=== PATIENT | male | born 1955 | race African-American/Black ===

== ENCOUNTER 2018-05-01 23:16 | Emergency (ER) | payer OTHER ==
[~2018-05-01] VITALS: Ht 180.3 cm; Wt 90.7 kg
[~2018-05-01 23:16] MED LIST: AGG25C OR; ATEN50TA OR; GLIP-115 OR; METF1000 OR
[2018-05-01 23:54] LABS: Basophils # (auto) 0.2 uL; Basophils % (auto) 2.2 % (0.0-2.0); Eosinophils # (auto) 0.8 uL; Hematocrit 35.6 % (41.0-53.0); Lymphocytes # (auto) 0.9 uL; Lymphocytes % (auto) 12.6 % (10.0-50.0); Mean Corpuscular Hemoglobin 33.6 pg (28.0-32.0); Mean Corpuscular Hgb Conc. 33.7 g/dL (32.0-36.0); Mean Corpuscular Volume 99.8 fL (80.0-100.0); Monocytes # (auto) 0.2 uL; Monocytes % (auto) 3.2 % (0.0-12.0); Neutrophils # (auto) 5.2 uL; Platelet Count (auto) 178 10^3/uL (140-450); Red Blood Cells 3.57 10^6/uL (4.5-5.90); Red Cell Distribution Width 14.7 % (11.8-14.3); White Blood Cell 7.4 10^3/uL (4.4-10.8)
[2018-05-02 00:12] LABS: Alanine Aminotransferase 26 U/L (16-61); Albumin 3.7 g/dL (3.4-5.0); Anion Gap 12 (5-15); Blood Urea Nitrogen 13 mg/dL (7-18); Calcium 7.6 mg/dL (8.5-10.1); Carbon Dioxide 18 mmol/L (21-32); Chloride 99 mmol/L (98-107); Sodium 129 mmol/L (136-145)
[2018-05-02 00:14] LABS: Aspartate Aminotransferase 24 U/L (15-37); Bilirubin, Total 0.6 mg/dL (0.2-1.0); GFR Non-African American 53 mL/min; Total Protein 7.5 g/dL (6.4-8.2)
[2018-05-02 00:15] LABS: GFR African American > 60 mL/min
[2018-05-02 00:16] LABS: Glucose 605 mg/dL (74-106)
[2018-05-02 00:21] LABS: Alkaline Phosphatase 158 U/L (45-117)
[2018-05-02] MEDS ORDERED: methylPREDNISolone SOD SUCC 125 MG/2 ML VL IV ONE (00:45)
[2018-05-02] MEDS ORDERED: SODIUM CHLORIDE 0.9% 1,000 ML IV ONE (00:45)
[2018-05-02] MEDS ORDERED: InsuLIN REG 1unit/0.01ml Soln (100units/ml) IV ONE (00:45)
[2018-05-02] MEDS ORDERED: IPRATROPIUM BROM 0.5 MG/2.5ML INH SOL NEB ONE (00:45)
[2018-05-02] MEDS ORDERED: ALBUTEROL SULF 2.5 MG/0.5ML(0.5%) NEB SOLN NEB ONE (00:45)
[2018-05-02] MEDS ORDERED: ONDANSETRON HCL 4 MG/2 ML VIAL IV ONE (01:30)
[2018-05-02] MEDS ORDERED: MORPHINE SULFATE 4 MG/ML SYR/VIAL IV ONE (01:30)
[2018-05-02] MEDS ORDERED: cloNIDine HCL 0.1 MG TAB PO ONE (02:00)
[2018-05-02 02:37] VITALS: BP 153/93
[2018-05-02 04:05] LABS: Urine Bacteria NONE SEEN /hpf (None Seen); Urine Blood Negative /uL (Negative); Urine Specific Gravity 1.025 (1.001-1.035); Urine WBC <1 /hpf (0 - 3)
== END 2018-05-02 04:38 | disposition home or self-care (01) ==
LOC: EDBD 23:16 → ER 23:22
DX: J44.1 Chronic obstructive pulmonary disease with (acute) exacerbation (principal); E11.65 Type 2 diabetes mellitus with hyperglycemia; J20.9 Acute bronchitis, unspecified; I11.0 Hypertensive heart disease with heart failure; I50.9 Heart failure, unspecified; I25.2 Old myocardial infarction; Z86.73 Personal history of transient ischemic attack (TIA), and cerebral infarction without residual deficits
CPT/HCPCS: 36415; 71045; 80053; 81001; 82010; 82962; 83735; 84484; 85025; 94640; 96361; 96374; 96375; 99284; J1815; J2270; J2405; J2930; J7030; J7611; J7644